=== PATIENT | female | born 1985 | race Two or more races ===

== ENCOUNTER → 2024-05-21 | Outpatient (BNVA) | payer MEDICAID, SELFPAY | END | disposition home or self-care (01) | PROVIDERS: PCP Nurse Practitioner Family; Referring Provider Nurse Practitioner Family; Visit Provider Nurse Practitioner Family | DX: E11.9 Type 2 diabetes mellitus without complications (principal); E66.9 Obesity, unspecified; Z79.4 Long term (current) use of insulin; E78.5 Hyperlipidemia, unspecified; R62.59 Other lack of expected normal physiological development in childhood; Z71.0 Person encountering health services to consult on behalf of another person; R85.9 Unspecified abnormal finding in specimens from digestive organs and abdominal cavity | CPT/HCPCS: 99214 ==

== ENCOUNTER → 2024-06-19 | Outpatient (BNVA) | payer MEDICAID, SELFPAY | END | disposition home or self-care (01) | PROVIDERS: PCP Nurse Practitioner Family; Referring Provider Nurse Practitioner Family; Visit Provider Nurse Practitioner Family | DX: E11.9 Type 2 diabetes mellitus without complications (principal); Z79.4 Long term (current) use of insulin; Z71.0 Person encountering health services to consult on behalf of another person; L29.9 Pruritus, unspecified; R62.59 Other lack of expected normal physiological development in childhood; E66.9 Obesity, unspecified | CPT/HCPCS: 83036; 99214 ==

== ENCOUNTER → 2024-09-19 | Outpatient (CLI) | payer MEDICAID, SELFPAY ==
--- NOTE | 2024-09-19 | XR_ITS ---
Examination: PA lateral chest 2 views TECHNIQUE: Upright PA lateral chest 2 views Date and time: September 19, 2024 0738 hours Comparison February 23, 2007 INDICATIONS: +PPD this month FINDINGS: Normal heart size Lungs are clear. Mild chronic wedging mid dorsal vertebral bodies IMPRESSION: No active disease No radiographic findings of tuberculosis
== END | disposition home or self-care (01) ==
LOC: CDIM 07:07
PROVIDERS: PCP Nurse Practitioner Family; Referring Provider Nurse Practitioner Family; Visit Provider Nurse Practitioner Family
DX: R76.12 Nonspecific reaction to cell mediated immunity measurement of gamma interferon antigen response without active tuberculosis (principal)
CPT/HCPCS: 71046

== ENCOUNTER 2024-10-26 22:34 | Emergency (ER) | payer MEDICAID, SELFPAY ==
[2024-10-26 22:38] VITALS: BMI 47.9
[2024-10-26 22:48] VITALS: BP 119/66; PULSE 103; RESP 18; TEMP 36.7; O2SAT 99; BMI 34.2
--- NOTE | 2024-10-26 23:04 | PD.EDDENTL ---
ED Dental RME/HPI General Chief complaint: Dental/Oral/Throat Stated complaint: TOOTH PAIN Time Seen by Provider: 10/26/24 23:00 Arrival date/time: 10/26/24 22:34 39F with history of DM and developmental delay presents to ED with several days of dental pain. Patient has dentist appt soon. Limitations: no limitations Related Data Previous Rx's ?Medication ?Instructions ?Recorded semaglutide 2 mg/dose (8 mg/3 mL) 2 mg (0.75 mL) subcut QWEEK 4 days 05/08/24 subcutaneous pen injector (Ozempic) #3 mL trazodone 150 mg tablet 150 mg PO QHS #90 tabs 05/08/24 flash glucose scanning reader #2 ea 05/21/24 (FreeStyle Ramos 2 [place]) flash glucose sensor (FreeStyle #2 ea 05/21/24 Ramos 2 Sensor kit) pen needle, diabetic 31 gauge x #100 ea 05/21/24/16 (BD Ultra-Fine Mini Pen Needle) empagliflozin 10 mg tablet 10 mg PO QDAY #30 tabs 06/15/24 (Jardiance) hydroxyzine HCl 25 mg tablet 25 mg PO TID PRN itching #30 tabs 06/19/24 amoxicillin 875 mg-potassium 1 tab PO BID 7 days #14 tabs 10/26/24 clavulanate 125 mg tablet Allergies Allergy/AdvReac Type Severity Reaction Status Date / Time No Known Allergies Allergy Verified 10/26/24 22:45 Review of Systems Review of Systems Systems Reviewed: All systems reviewed, normal except as documented Constitutional Constitutional: Reports system reviewed and no additional complaints, except as documented, Denies fever(s) and Denies headache(s) ENT Ears, Nose, Mouth, and Throat: Reports as per HPI, Reports dental pain, Denies disequilibrium and Denies headache(s) Cardiovascular Cardiovascular: Reports system reviewed and no additional complaints, except as documented, Denies chest pain and Denies dyspnea Respiratory Respiratory: Reports system reviewed and no additional complaints, except as documented, Denies cough and Denies dyspnea Gastrointestinal Gastrointestinal: Reports system reviewed and no additional complaints, except as documented, Denies abdominal pain, Denies nausea and Denies vomiting Neurologic Neurologic: Reports system reviewed and no additional complaints, except as documented, Denies confusion, Denies disequilibrium and Denies headache(s) Psychiatric Psychiatric: Denies confusion Past Medical History Past Medical History NEUROLOGIC: Negative Neurological Disorders CARDIAC: Positive Hypercholesterolemia; Negative Cardiac Disorders or Congestive Heart Failure RESPIRATORY: Negative Chronic Obstructive Pulmonary Disease (COPD) or Asthma GASTROINTESTINAL: Negative Gastrointestinal Disorders GENITOURINARY: Negative Genitourinary Disorders or Renal Disease MUSCULOSKELETAL: Negative Musculoskeletal Disorders ENDOCRINE: Positive Endocrine Disorders, Diabetes Mellitus Type 1 and Diabetes Mellitus Type 2 HEMATOLOGIC: Negative Blood Disorders or Sickle Cell Disease Social History SMOKING STATUS: Never smoker ED Exam General Limitations: Present no limitations General appearance: Present alert and in no apparent distress Head Head exam: Present atraumatic Eye Eye exam: Present normal appearance, PERRL and EOMI ENT ENT exam: Present mucous membranes moist Expanded ENT Exam Teeth exam: Present dental tenderness # (19-20) and gingival swelling Neck Neck exam: Present normal inspection, full ROM and trachea midline Chest Chest inspection: Present normal inspection and symmetric chest wall rise Respiratory Respiratory exam: Present normal lung sounds bilaterally Cardiovascular Cardiovascular exam: Present regular rate, normal rhythm and normal heart sounds Abdominal Exam Abdominal exam: Present soft and normal bowel sounds Extremities Exam Extremities exam: Present normal inspection and full ROM Back Exam Back exam: Present normal inspection and full ROM Neurological Exam Neurological exam: Present alert, oriented X3 and CN II-XII intact Psychiatric Psychiatric exam: Present normal affect and normal mood Skin Skin exam: Present warm, dry, intact and normal color Course Quality Measures none Orders Category Date Time Status Amoxicillin/Pot Clav 875 [Augmentin 875] Med 10/26/24 23:01 Once 1 tab PO X1 ONE Naproxen [Naprosyn] Med 10/26/24 23:01 Once 500 mg PO X1 ONE Vital Signs Vital signs: Vital Signs Temperature 98.1 F 10/26/24 22:48 Pulse Rate 103 H 10/26/24 22:48 Respiratory Rate 18 10/26/24 22:48 Blood Pressure 119/66 10/26/24 22:48 Pulse Oximetry (%) 99 10/26/24 22:48 Oxygen Delivery Method Room Air 10/26/24 22:48 O2 at 99% on RA and WNLs Dental / Oral MDM Narrative MDM Narrative:: 39F with history of DM and developmental delay presents to ED with several days of dental pain. Patient has dentist appt soon. Physical exam reveals L lower gingival swelling and dental tenderness. Patient is afebrile, calm, and alert. Meds and certified personal finance counselor given. Patient data External records reviewed:: [facility] previous records Clinical information provided by:: patient Social determinants that could affect healthcare access:: none Patient has the following chronic illnesses:: DM and developmental delay How is presenting disease/condition affected by chronic disease/condition?: exacerbated by Evaluation data The following diagnostics were reviewed and interpreted by me:: other (specify) (none) Lab and/or radiology exams considered but not ordered:: not ordered Interpretation Summary: n/a Medications / Prescriptions Medications or Prescriptions considered but not ordered:: ordered Medication administrations:: Medication Administration History Amoxicillin/Clavulanate Potassium (Amoxicillin/Pot Clav 875 Tablet) 1 tab PO X1 ONE Stop: 10/26/24 23:02 Naproxen (Naproxen 250 Mg Tablet) 500 mg PO X1 ONE Stop: 10/26/24 23:02 above Consultations Consultation(s) initiated? (list below): No Diagnosis Dental Differential Diagnosis: gingival abscess, dental caries, toothache, dental abscess, fracture of tooth and aphthous ulcer Most likely diagnosis given after review of the tests above:: dental abscess Admission Indicated Admission indicated?: not indicated Admission Request Was there a request for admission?: No Disposition Plan Disposition Plan: Discharge Discharge Attestation Discharge Attestation: The patient and all family members were given an opportunity to ask questions and understood the discharge instructions. Discharge instructions specifically effects, indications for sooner follow up or return to the emergency department, and the expected course of current diagnosis. Patient condition: Stable Discharge Plan Plan Patient Disposition: HOME (Self Care) Discharge Disposition comment: STable Prescriptions/Referrals Prescriptions/Med Rec: New amoxicillin-pot clavulanate 875-125 mg tablet 1 tab PO BID 7 Days Qty: 14 0RF No Action hydroxyzine HCl 25 mg tablet 25 mg PO TID PRN (Reason: itching) Qty: 30 0RF (DME) FreeStyle Ramos 2 [place] Misc See Rx Instructions .ROUTE .MEDSUPPLY Qty: 2 3RF Rx Instructions: dispense 14 days supply (DME) FreeStyle Ramos 2 Sensor Kit See Rx Instructions .ROUTE .MEDSUPPLY Qty: 2 3RF Rx Instructions: Dispense 14 day supplies (DME) pen needle, diabetic [BD Ultra-Fine Mini Pen Needle] 31 gauge x 3/16 needle See Rx Instructions .Route Qty: 100 2RF Rx Instructions: inject insulin once a day Ozempic 2 mg/dose (8 mg/3 mL) pen injector 2 mg subcut QWEEK 4 Days Qty: 3 2RF trazodone 150 mg tablet 150 mg PO QHS Qty: 90 0RF Jardiance 10 mg tablet 10 mg PO QDAY Qty: 30 0RF Rx Instructions: Directions in Italian Problem List Clinical Impression: Dental abscess Patient/Caregiver Discharge Instructions Education Materials: ED Dental Abscess Additional Instructions: Please follow-up with PCP within 24-48 hours and return immediately if symptoms worsen. Ibuprofen/Tylenol can be used simultaneously for greater fever/pain control. NSAIDs like ibuprofen tend to work better for this type of pain. See dentist soon. Print Language: Italian Stand Alone Forms: Patient Portal Info Letter PA/CREW LEAD Supervising Physician CAROLA/SOLE Supervising Physician: Dr. Love
[2024-10-26] MEDS: NAPROXEN 250 MG TABLET 500 MG PO (23:30)
[2024-10-26] MEDS: AMOXICILLIN/POT CLAV 875 TABLET 1 TAB PO (23:30)
== END 2024-10-26 23:47 | disposition home or self-care (01) ==
LOC: SERX 23:43
PROVIDERS: Emergency Provider Emergency Medicine
DX: K04.7 Periapical abscess without sinus (principal)
CPT/HCPCS: 99282; A9270